=== PATIENT | male | born 1950 | race Caucasian/White ===

== ENCOUNTER → 2017-01-29 | Outpatient (CLI) | payer OTHER, MEDICARE ==
[2016-07-08 12:10] VITALS: BP 113/64
--- NOTE | 2017-01-29 11:34 | MRI ---
MRI right foot without contrast Indication: Right foot pain and swelling, nonhealing ulcer of the 4th toe Comparison: CTA runoff 01/14/2017 Technique: Multiplanar, multisequence MR images of the right foot were obtained without contrast. Findings: There is diffuse soft tissue edema of the 4th toe with associated osteolysis and hypointen se T1 marrow signal involving the distal phalangeal tuft. No discrete collection is identified. Ther e is some mild nonspecific marrow edema of the distal portion of the great toe distal phalanx, witho ut evidence for overt cortical destruction or hypointense T1 marrow signal. There is chronic fractur e deformity with foreshortening of the 3rd toe middle phalanx. 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 There is diffuse intrinsic muscular atrophy of the foot, in keeping with chronic diab etic neuropathy. Impression: 1. 4th toe cellulitis with osteomyelitis of the distal phalanx. No discrete collection identified. 2. 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 Generalized intrinsic muscular atrophy 4. Remote 3rd digit middle phalanx fracture. Reported By:
== END | disposition home or self-care (01) ==
LOC: RAD 09:14
PROVIDERS: ATTEND Specialist
DX: M79.674 Pain in right toe(s) (principal); M79.89 Other specified soft tissue disorders; S92.521A Displaced fracture of middle phalanx of right lesser toe(s), initial encounter for closed fracture; X58.XXXA Exposure to other specified factors, initial encounter; L03.031 Cellulitis of right toe; M86.8X7 Other osteomyelitis, ankle and foot
CPT/HCPCS: 73721

== ENCOUNTER 2019-11-24 16:16 | Inpatient (IN) ==
[2019-11-24 18:49] LABS: BASOPHILS % (AUTO) 0.2 % (0.2-1.0); EOSINOPHILS % (AUTO) 0.1 % (0.9-2.9); HEMATOCRIT 37.6 % (42.0-54.0); HEMOGLOBIN 12.5 g/dL (13.5-18.0); LYMPHOCYTES # (AUTO) 0.4 X10^3/uL (1.3-2.9); LYMPHOCYTES % (AUTO) 2.6 % (21.0-51.0); MEAN CORPUSCULAR HEMOGLOBIN 31.1 pg (27.0-34.0); MEAN CORPUSCULAR HGB CONC 33.3 g/dL (33.0-35.0); MEAN CORPUSCULAR VOLUME 93.4 fL (80.0-100.0); MEAN PLATELET VOLUME 9.1 fL (7.4-11.0); MONOCYTES # (AUTO) 1.4 x10^3/uL (0.3-0.8); MONOCYTES % (AUTO) 8.4 % (0.0-13.0); NEUTROPHILS # (AUTO) 14.7 x10^3/uL (2.2-4.8); NEUTROPHILS % (AUTO) 88.7 % (42.0-75.0); PLATELET COUNT 271 X10^3/uL (150.0-450.0); RED BLOOD COUNT 4.03 X10^6/uL (4.7-6.0); RED CELL DISTRIBUTION WIDTH 15.7 % (11.6-16.5); WHITE BLOOD COUNT 16.6 X10^3/uL (3.6-10.0)
[2019-11-24 19:59] LABS: ALBUMIN 2.1 g/dL (3.4-5.0); CALCIUM 8.2 mg/dL (8.5-10.1); CARBON DIOXIDE 24.3 mmol/L (21-32); COR CA(FOR HYPOALB) 9.7 mg/dL (8.5-10.1); CREATININE 5.38 mg/dL (0.70-1.30); TOTAL PROTEIN 7.2 g/dL (6.4-8.2)
[2019-11-24 21:11] VITALS: BMI 35.4
[2019-11-24] MEDS: ROCEPHIN VIAL 1 GRAM 1 G in NS 100 ML IV + SPIKE MINIBAG* 100 ML IV SCH (21:36)
[2019-11-24] MEDS: NS 1000 ML 1,000 ML IV SCH (21:36)
[2019-11-24 22:26] LABS: BILIRUBIN,URINE 3+ (NEGATIVE); BLOOD/HEMOGLOBIN,URINE 1+ (NEGATIVE); GLUCOSE, URINE NEGATIVE (NEGATIVE); KETONES,URINE NEGATIVE (NEGATIVE); LEUKOCYTE ESTERASE ,URINE 1+ (NEGATIVE); NITRITES,URINE NEGATIVE (NEGATIVE); PROTEIN,URINE 2+ (NEGATIVE); UROBILINOGEN,URINE 2+ (NORMAL)
[2019-11-24 22:35] LABS: APPEARANCE,URINE SLIGHTLY HAZY (CLEAR); COLOR,URINE DARK YELLOW (YELLOW)
[2019-11-24 22:36] LABS: AMORPHOUS SEDIMENT,UR 2+ /HPF (NEGATIVE); BACTERIA,URINE 1+ /HPF (NEGATIVE); HYALINE CASTS, URINE FEW /LPF (NEGATIVE); SQUAMOUS EPITHELIAL CELL,UR RARE /HPF (NEGATIVE)
[2019-11-24] MEDS ORDERED: STERILE WATER IRRIGATION IR ONE (23:05)
[2019-11-24] MEDS ORDERED: BENADRYL CAP/TAB 25 MG PO ONE (23:12)
[2019-11-24] MEDS: BENADRYL CAP/TAB 25 MG PO PRN (23:18)
[2019-11-25] MEDS: NS 1000 ML 1,000 ML IV SCH ×4 (06:13→21:10)
[2019-11-25 06:14] LABS: BASOPHILS % (AUTO) 0.1 % (0.2-1.0); EOSINOPHILS % (AUTO) 0.2 % (0.9-2.9); HEMATOCRIT 35.9 % (42.0-54.0); HEMOGLOBIN 12.2 g/dL (13.5-18.0); LYMPHOCYTES # (AUTO) 0.4 X10^3/uL (1.3-2.9); LYMPHOCYTES % (AUTO) 2.8 % (21.0-51.0); MEAN CORPUSCULAR HEMOGLOBIN 31.4 pg (27.0-34.0); MEAN CORPUSCULAR VOLUME 92.5 fL (80.0-100.0); MEAN PLATELET VOLUME 9.4 fL (7.4-11.0); MONOCYTES # (AUTO) 1.2 x10^3/uL (0.3-0.8); MONOCYTES % (AUTO) 8.9 % (0.0-13.0); NEUTROPHILS # (AUTO) 12.4 x10^3/uL (2.2-4.8); PLATELET COUNT 244 X10^3/uL (150.0-450.0); RED BLOOD COUNT 3.88 X10^6/uL (4.7-6.0); RED CELL DISTRIBUTION WIDTH 15.6 % (11.6-16.5); WHITE BLOOD COUNT 14.1 X10^3/uL (3.6-10.0)
[2019-11-25] MEDS: BENADRYL CAP/TAB 25 MG PO PRN (06:30)
[2019-11-25 06:39] LABS: ALBUMIN 1.9 g/dL (3.4-5.0); CALCIUM 8.1 mg/dL (8.5-10.1); CARBON DIOXIDE 25.3 mmol/L (21-32); COR CA(FOR HYPOALB) 9.8 mg/dL (8.5-10.1); CREATININE 4.74 mg/dL (0.70-1.30); TOTAL PROTEIN 6.9 g/dL (6.4-8.2)
[2019-11-25] MEDS ORDERED: TYLENOL 325 MG TAB PO PRN (07:20)
[2019-11-25] MEDS ORDERED: TYLENOL 325 MG TAB PO ONE (07:40)
[2019-11-25] MEDS: ROCEPHIN VIAL 1 GRAM 1 G in NS 100 ML IV + SPIKE MINIBAG* 100 ML IV SCH (10:06)
[2019-11-25] MEDS ORDERED: NS 1000 ML 1,000 ML IV ONE ×2 (10:22→10:23)
[2019-11-25] MEDS: PLAVIX PO SCH (12:06)
[2019-11-25] MEDS: LOVENOX INJ 30 MG SYR SC SCH (12:07)
--- NOTE | 2019-11-25 21:54 | DR.UPDATE ---
H&P Update History and Physical Update: History and Physical reviewed and patient examined. Changes noted: Yes with the following: PRESENTED OT THE OFFICE WITH COMPLAINTS OF FEVER, WEAKNESS, AND FATIGUE. HE REPORTS A CHANGE IN URINE STREAM AND ALSO REPORTS DARK URINE FOR THE PAST THREE DAYS. HE WAS NOTED TO BE HYPOTENSIVE IN THE OFFICE. WE ADMITTED PATIENT FOR FURTHER EVALUATIONS AND TREATMENT OF UTI, DEHYDRATION, AND HYPOTENSION. ON ADMISSION, WE OBTAINED LABS. ABNORMAL LAB VALUES INCLUDE THE FOLLOWING: WBC 16.6, RBC 4.03, HGB 12.5, HCT 37.6, SODIUM 131, CHLORIDE 94, BUN 90, CREATININE 5.38, GLUCOSE 170, CALCIUM 8.2, TOTAL BILI 1.70, AT 219, ALT 100, ALK PHOS 290, ALBUMIN 2.1, GLOBULIN 5.1. URINALYSIS REVEALED WBC 5-10, RBC 3-5, BACTERIA 1+, LEUKOCTYES 1+. URINE CULTURE PENDING. WE STARTED NORMAL SALINE AT 125ML/HR AND ROCEPHIN 1G IV DAILY. TODAY, WE WILL OBTAIN AN ECHO, HEPATITIS PANEL, BNP, AND BLOOD CULTURES. WE WILL ADMINISTER 2 NORMAL SALINE BOLUSES AND START TRAMADOL 50MG PO Q6H PRN PAIN. OTHERWISE, WE WILL FOLLOW UP WITH AM LABS AND CONTINUE TO MONITOR. H&P Reviewed: Yes Patient was examined?: Yes
[2019-11-26] MEDS: NS 1000 ML 1,000 ML IV SCH ×4 (05:30→21:55)
[2019-11-26 06:13] LABS: BASOPHILS % (AUTO) 0.1 % (0.2-1.0); EOSINOPHILS % (AUTO) 0.3 % (0.9-2.9); HEMATOCRIT 34.3 % (42.0-54.0); HEMOGLOBIN 11.5 g/dL (13.5-18.0); LYMPHOCYTES # (AUTO) 0.4 X10^3/uL (1.3-2.9); LYMPHOCYTES % (AUTO) 3.1 % (21.0-51.0); MEAN CORPUSCULAR HEMOGLOBIN 31.3 pg (27.0-34.0); MEAN CORPUSCULAR HGB CONC 33.6 g/dL (33.0-35.0); MEAN PLATELET VOLUME 8.9 fL (7.4-11.0); MONOCYTES # (AUTO) 1.1 x10^3/uL (0.3-0.8); MONOCYTES % (AUTO) 8.1 % (0.0-13.0); NEUTROPHILS # (AUTO) 11.6 x10^3/uL (2.2-4.8); NEUTROPHILS % (AUTO) 88.4 % (42.0-75.0); PLATELET COUNT 263 X10^3/uL (150.0-450.0); RED BLOOD COUNT 3.69 X10^6/uL (4.7-6.0); RED CELL DISTRIBUTION WIDTH 15.9 % (11.6-16.5); WHITE BLOOD COUNT 13.1 X10^3/uL (3.6-10.0)
--- NOTE | 2019-11-26 06:14 | RAD ---
HISTORYSOBSTUDYAP [id number] heart size, borderline enlarged. The lungs and pleural spaces are clear of active-appearing disease. There is no evidence for pneumonia or CHFIMPRESSIONNo significant change; no acute findings.Electronically signed by: JOAQUIM BLOUNT (Nov 26, 2019 06:13:51)
[2019-11-26 06:20] LABS: ALBUMIN 1.7 g/dL (3.4-5.0); CARBON DIOXIDE 25.6 mmol/L (21-32); COR CA(FOR HYPOALB) 9.8 mg/dL (8.5-10.1); CREATININE 2.49 mg/dL (0.70-1.30); TOTAL PROTEIN 6.6 g/dL (6.4-8.2)
[2019-11-26] MEDS: LOVENOX INJ 30 MG SYR SC SCH (09:38)
[2019-11-26] MEDS: ROCEPHIN VIAL 1 GRAM 1 G in NS 100 ML IV + SPIKE MINIBAG* 100 ML IV SCH (09:38)
[2019-11-26] MEDS: HumuLIN R SUBCUT PRN ×2 (17:50→21:53)
[2019-11-26] MEDS: SNACK - Diabetic Appropriate PO SCH (21:40)
[2019-11-26] MEDS: ULTRAM PO PRN (21:55)
--- NOTE | 2019-11-26 22:00 | PCM.PROG ---
Progress Note - Progress Note for Day of Date of Exam: 11/26/19 - Subjective Subjective: IS BEING TREATED FOR ACUTE RENAL FAILURE, URINARY TRACT INFECTION, AND HYPOTENSION. TODAY, HE IS ALERT AND ORIENTED, LYING IN BED ON MORNING ROUNDS. HE REPORTS WEAKNESS AND LOWER BACK PAIN TODAY. HE CONTINUES WITH DARK URINE. ON EXAMINATION, HEART IS REGULAR IN RATE AND RHYTHM. BILATERAL LUNGS ARE NOTED WITH DIMINISHED LUNG SOUNDS THROUGHOUT. ABDOMEN IS ROUND, SOFT, AND NON-TENDER WITH NORMAL BOWEL SOUNDS NOTED IN ALL QUARANTS. HIS VITALS THIS MORNING ARE: 97.9-93-18-97%-149/70. LABS WERE OBTAINED. ABNORMAL LAB VALUES INCLUDE THE FOLLOWING: WBC 13.1, RBC 3.69, HGB 11.5, HCT 34.3, POTASSIUM 3.2, CHLORIDE 108, BUN 60, CREATININE 2.49, GLUCOSE 237, CALCIUM 8.0, AST 101, ALT 87, ALK PHOS 274, BNP 169, ALBUMIN 1.7, GLOBULIN 4.9. URINE CULTURE AND BLOOD CULTURES ARE PENDING. A HEPATITIS PANEL IS ALSO PENDING. CHEST XRAY IS NORMAL. HE IS CURRENTLY RECEIVING NORMAL SALINE AT 125ML/HR, ROCEPHIN 1G IV DAILY, LOVENOX 30MG SC DAILY, PLAVIX 75MG PO QOD, AND HUMULIN R SLIDING SCALE. WE WILL CONTINUE WITH CURRENT PLAN OF CARE TODAY. OTHERWISE, WE WILL FOLLOW UP WITH AM LABS AND CONTINUE TO MONITOR. - Past Medical Family Social History Past Med/Fam/Surg Hx: No changes since H&P Allergies: Allergies morphine Allergy (Verified 11/24/19 18:25) - Review of Systems ROS: No change since H&P - Vital Signs and I&O's Vital Signs: Temperature 97.8 F Pulse Rate [Left Brachial] 69 Respiratory Rate 22 Blood Pressure [Left Arm] 98/54 Blood Pressure [Right Arm] 149/70 Blood Pressure 154/74 O2 Sat by Pulse Oximetry 96 Intake and Output: Intake & Output 11/24/19 11/25/19 11/26/19 11/27/19 11:59 11:59 11:59 11:59 Intake Total 1541 / 1541 6149 / 6149 1676 / 1676 Output Total 875 / 875 4100 / 4100 400 / 400 Balance 666 / 666 2049 / 2049 1276 / 1276 - Physical Exam Oriented: Normal Eyes: Normal Ear: Normal Nose: Normal Throat: Normal Respiratory: Generalized, Diminished Cardiovascular: Normal. negative: S3, S4, Murmur : Normal Auscultation: Bowel Sounds: Normal Palpation: Normal Tenderness: Normal Skin: Normal Musculoskeletal: Back:Lumbar Psychiatric: Normal Mood Description: Calm Affect: Normal Speech Pattern: Clear, Appropriate - Laboratory and Diagnostics Result Diagrams: 11/26/19 05:41 11/26/19 05:41 Labs: 11/24/19 19:57 Urine,Clean Catch Urine Culture - Final Laboratory WBC 13.1 X10^3/uL (3.6-10.0) H 11/26/19 05:41 RBC 3.69 X10^6/uL (4.7-6.0) L 11/26/19 05:41 Hgb 11.5 g/dL (13.5-18.0) L 11/26/19 05:41 Hct 34.3 % (42.0-54.0) L 11/26/19 05:41 MCV 93.0 fL (80.0-100.0) 11/26/19 05:41 MCH 31.3 pg (27.0-34.0) 11/26/19 05:41 MCHC 33.6 g/dL (33.0-35.0) 11/26/19 05:41 RDW 15.9 % (11.6-16.5) 11/26/19 05:41 Plt Count 263 X10^3/uL (150.0-450.0) 11/26/19 05:41 MPV 8.9 fL (7.4-11.0) 11/26/19 05:41 Neut % (Auto) 88.4 % (42.0-75.0) H 11/26/19 05:41 Lymph % (Auto) 3.1 % (21.0-51.0) L 11/26/19 05:41 [place] % (Auto) 8.1 % (0.0-13.0) 11/26/19 05:41 Eos % (Auto) 0.3 % (0.9-2.9) L 11/26/19 05:41 Baso % (Auto) 0.1 % (0.2-1.0) L 11/26/19 05:41 Neut # (Auto) 11.6 x10^3/uL (2.2-4.8) H 11/26/19 05:41 Lymph # (Auto) 0.4 X10^3/uL (1.3-2.9) L 11/26/19 05:41 [place] # (Auto) 1.1 x10^3/uL (0.3-0.8) H 11/26/19 05:41 Eos # (Auto) 0.0 x10^3/uL (0.0-0.2) 11/26/19 05:41 Baso # (Auto) 0.0 X10^3/uL (0.0-0.1) 11/26/19 05:41 Absolute Nucleated RBC 0.0 /100WBC 11/26/19 05:41 Sodium 143 mmol/L (136-145) 11/26/19 05:41 Corrected Sodium 146 mmol/L (136-145) H 11/26/19 05:41 Potassium 3.2 mmol/L (3.5-5.1) L 11/26/19 05:41 Chloride 108 mmol/L (98-107) H 11/26/19 05:41 Carbon Dioxide 25.6 mmol/L (21-32) 11/26/19 05:41 BUN 60 mg/dL (7-18) H 11/26/19 05:41 Creatinine 2.49 mg/dL (0.70-1.30) H 11/26/19 05:41 Est GFR (MDRD) Af Amer 33 (>60) L 11/26/19 05:41 Est GFR (MDRD) Non-Af 27 (>60) L 11/26/19 05:41 Glucose 237 mg/dL (65-99) H 11/26/19 05:41 POC Glucose (mg/dL) 234 mg/dL (65-99) H 11/26/19 20:41 Calcium 8.0 mg/dL (8.5-10.1) L 11/26/19 05:41 Corrected Calcium 9.8 mg/dL (8.5-10.1) 11/26/19 05:41 Magnesium 2.6 mg/dL (1.7-2.9) 11/26/19 05:41 Total Bilirubin 0.60 mg/dL (0.2-1.0) 11/26/19 05:41 AST 101 Units/L (15-37) H 11/26/19 05:41 ALT 87 Units/L (12-78) H 11/26/19 05:41 Alkaline Phosphatase 274 Units/L (46-116) H 11/26/19 05:41 B-Natriuretic Peptide 169 pg/mL (0-79) H 11/25/19 10:33 Total Protein 6.6 g/dL (6.4-8.2) 11/26/19 05:41 Albumin 1.7 g/dL (3.4-5.0) L 11/26/19 05:41 Globulin 4.9 g/dL (2.5-4.5) H 11/26/19 05:41 Albumin/Globulin Ratio 0.3 Ratio (1.1-2.1) L 11/26/19 05:41 Specimen Type Clean catch urine 11/24/19 19:57 Urine Color Dark yellow (YELLOW) 11/24/19 19:57 Urine Appearance Slightly hazy (CLEAR) 11/24/19 19:57 Urine pH 5.0 (5.0 - 8.0) 11/24/19 19:57 Ur Specific [place] 1.015 (1.000-1.030) 11/24/19 19:57 Urine Protein 2+ (NEGATIVE) 11/24/19 19:57 Urine Glucose (UA) Negative (NEGATIVE) 11/24/19 19:57 Urine Ketones Negative (NEGATIVE) 11/24/19 19:57 Urine Occult Blood 1+ (NEGATIVE) 11/24/19 19:57 Urine Nitrite Negative (NEGATIVE) 11/24/19 19:57 Urine Bilirubin 3+ (NEGATIVE) 11/24/19 19:57 Urine Urobilinogen 2+ (NORMAL) 11/24/19 19:57 Ur Leukocyte Esterase 1+ (NEGATIVE) 11/24/19 19:57 Urine RBC 3-5 /HPF (0-3) A 11/24/19 19:57 Urine WBC 5-10 /HPF (0-5) A 11/24/19 19:57 Ur Squamous Epith Cells Rare /HPF (NEGATIVE) 11/24/19 19:57 Amorphous Sediment 2+ /HPF (NEGATIVE) 11/24/19 19:57 Urine Bacteria 1+ /HPF (NEGATIVE) 11/24/19 19:57 Hyaline Casts Few /LPF (NEGATIVE) 11/24/19 19:57 Ur Culture Indicated? Yes/culture set up 11/24/19 19:57 - Plan (1) Acute renal failure Status: Acute Qualifiers: Acute renal failure type: unspecified Qualified Code(s): N17.9 - Acute kidney failure, unspecified Plan: ADMIT, NORMAL SALINE AT 125ML/HR, CONTINUE TO MONTIOR (2) Urinary tract infection Status: Acute Qualifiers: Urinary tract infection type: acute cystitis Hematuria presence: without hematuria Qualified Code(s): N30.00 - Acute cystitis without hematuria Plan: ROCEPHIN 1G IV DAILY, CONTINUE TO MONITOR (3) Hypotension Status: Resolved Qualifiers: Hypotension type: unspecified hypotension type Qualified Code(s): I95.9 - Hypotension, unspecified
[2019-11-27 05:11] LABS: BASOPHILS % (AUTO) 0.2 % (0.2-1.0); EOSINOPHILS # (AUTO) 0.1 x10^3/uL (0.0-0.2); EOSINOPHILS % (AUTO) 0.8 % (0.9-2.9); HEMATOCRIT 32.5 % (42.0-54.0); HEMOGLOBIN 10.9 g/dL (13.5-18.0); LYMPHOCYTES # (AUTO) 0.6 X10^3/uL (1.3-2.9); MEAN CORPUSCULAR HEMOGLOBIN 31.3 pg (27.0-34.0); MEAN CORPUSCULAR HGB CONC 33.5 g/dL (33.0-35.0); MEAN CORPUSCULAR VOLUME 93.5 fL (80.0-100.0); MEAN PLATELET VOLUME 8.9 fL (7.4-11.0); MONOCYTES # (AUTO) 1.2 x10^3/uL (0.3-0.8); MONOCYTES % (AUTO) 8.5 % (0.0-13.0); NEUTROPHILS # (AUTO) 12.4 x10^3/uL (2.2-4.8); NEUTROPHILS % (AUTO) 86.5 % (42.0-75.0); PLATELET COUNT 288 X10^3/uL (150.0-450.0); RED BLOOD COUNT 3.47 X10^6/uL (4.7-6.0); RED CELL DISTRIBUTION WIDTH 15.5 % (11.6-16.5); WHITE BLOOD COUNT 14.3 X10^3/uL (3.6-10.0)
[2019-11-27 05:26] LABS: ALANINE AMINOTRANSFERASE 79 Units/L (12-78); ALBUMIN 1.6 g/dL (3.4-5.0); ALKALINE PHOSPHATASE 245 Units/L (46-116); ASPARTATE AMINO TRANSFERASE 73 Units/L (15-37); BLOOD UREA NITROGEN 33 mg/dL (7-18); CALCIUM 8.2 mg/dL (8.5-10.1); CARBON DIOXIDE 25.1 mmol/L (21-32); CHLORIDE 111 mmol/L (98-107); COR CA(FOR HYPOALB) 10.1 mg/dL (8.5-10.1); COR NA(FOR HYPERGLY) 146 mmol/L (136-145); CREATININE 1.43 mg/dL (0.70-1.30); SODIUM 145 mmol/L (136-145); TOTAL PROTEIN 6.4 g/dL (6.4-8.2); eGFR NON BLACK RACES 52 (>60)
[2019-11-27] MEDS ORDERED: KLOR-CON PO PRN (05:53)
[2019-11-27] MEDS ORDERED: POTASSIUM CHL 60 MEQ/NS 0.45% 500 ML IV PRN (05:53)
[2019-11-27] MEDS ORDERED: K-DUR TAB 20 MEQ PO PRN (05:53)
[2019-11-27] MEDS ORDERED: MAGNESIUM SULFATE 1 GRAM/100 mL PREMIX 1 GM/100 ML BAG IV PRN (05:53)
[2019-11-27] MEDS ORDERED: K-RIDER 10 MEQ/NS 100 ML 10 MEQ/100 ML BAG IV PRN (05:53)
[2019-11-27] MEDS ORDERED: POTASSIUM CHL 40 MEQ/NS 0.45% 500 ML IV PRN (05:53)
[2019-11-27] MEDS ORDERED: MICRO K EXTEN CAP 10 MEQ PO PRN (05:53)
[2019-11-27] MEDS ORDERED: POTASSIUM CHLORIDE LIQ 20 MEQ UDC PO PRN (05:53)
[2019-11-27] MEDS: NS 1000 ML 1,000 ML IV SCH ×4 (06:34→22:42)
--- NOTE | 2019-11-27 07:30 | RAD ---
HISTORYSOBSTUDYCHEST, 1 [id number] trachea is midline. The cardiac silhouette is enlarged. Linear opacity within the right lung base likely represents subsegmental atelectasis. Remaining lungs are clear. No pleural effusion or pneumothorax. No acute osseous abnormality.IMPRESSIONInterval development of linear opacity within the right lung base likely represents subsegmental atelectasis. The remaining lungs are otherwise clear.Stable cardiomegaly.Electronically signed by: BETHANIE SRIVASTAVA (Nov 27, 2019 07:29:17)
[2019-11-27] MEDS: DUONEB 0.5 MG/3 MG (3 mL) NEB SCH ×4 (09:40→20:56)
[2019-11-27] MEDS: ROCEPHIN VIAL 1 GRAM 1 G in NS 100 ML IV + SPIKE MINIBAG* 100 ML IV SCH (09:50)
[2019-11-27] MEDS: LOVENOX INJ 30 MG SYR SC SCH (09:50)
[2019-11-27] MEDS: PLAVIX PO SCH (10:30)
[2019-11-27] MEDS: HumuLIN R SUBCUT PRN (17:15)
[2019-11-27] MEDS: SNACK - Diabetic Appropriate PO SCH (20:12)
[2019-11-27] MEDS: ULTRAM PO PRN (20:13)
--- NOTE | 2019-11-27 20:37 | PCM.PROG ---
Progress Note - Progress Note for Day of Date of Exam: 11/27/19 - Subjective Subjective: IS BEING TREATED FOR ACUTE RENAL FAILURE, URINARY TRACT INFECTION, AND HYPOTENSION. TODAY, HE IS ALERT AND ORIENTED, LYING IN BED ON MORNING ROUNDS. HE REPORTS WEAKNESS, SHORTNESS OF BREATH, AND COUGH TODAY, BUT REPORTS SLIGHT IMPROVEMENT IN SYMPTOMS SINCE YESTERDAY. ON EXAMINATION, HEART IS REGULAR IN RATE AND RHYTHM. BILATERAL LUNGS ARE NOTED WITH DIMINISHED LUNG SOUNDS THROUGHOUT. ABDOMEN IS ROUND, SOFT, AND NON-TENDER WITH NORMAL BOWEL SOUNDS NOTED IN ALL QUARANTS. HIS VITALS THIS MORNING ARE: 98.7-57-20-97%-138/65. LABS WERE OBTAINED. ABNORMAL LAB VALUES INCLUDE THE FOLLOWING: WBC INCREASED TO 14.3, RBC 3.47, HGB 10.9, HCT 32.5, CHLORIDE 111, BUN 36, CREATININE 1.43, GLUCOSE 121, CALCIUM 8.2, AST 73, ALT 79, ALK PHOS 245, ALBUMIN 1.6, GLOBULIN 4.8. URINE CULTURE AND BLOOD CULTURES ARE PENDING. A HEPATITIS PANEL IS ALSO PENDING. CHEST XRAY TODAY REVEALED: Interval development of linear opacity within the right lung base likely represents subsegmental atelectasis. The remaining lungs are otherwise clear. Stable cardiomegaly. HE IS CURRENTLY RECEIVING NORMAL SALINE AT 125ML/HR, ROCEPHIN 1G IV DAILY, LOVENOX 30MG SC DAILY, PLAVIX 75MG PO QOD, AND HUMULIN R SLIDING SCALE. WE WILL CONTINUE WITH CURRENT PLAN OF CARE TODAY AND START BREATHING TREATMENTS FOR ACUTE BRO NCHITIS WITH POSSIBLE DEVELOPING INFILTRATES. OTHERWISE, WE WILL FOLLOW UP WITH AM LABS AND CONTINUE TO MONITOR. - Past Medical Family Social History Past Med/Fam/Surg Hx: No changes since H&P Allergies: Allergies morphine Allergy (Verified 11/24/19 18:25) - Review of Systems ROS: No change since H&P - Vital Signs and I&O's Vital Signs: Temperature 97.9 F Pulse Rate [Left Brachial] 83 Pulse Rate 62 Respiratory Rate 18 Blood Pressure [Left Arm] 98/54 Blood Pressure [Right Arm] 150/77 Blood Pressure 154/74 O2 Sat by Pulse Oximetry 97 Intake and Output: Intake & Output 11/25/19 11/26/19 11/27/19 11/28/19 11:59 11:59 11:59 11:59 Intake Total 1541 / 1541 6149 / 6149 3176 / 3176 1939 / 194 Output Total 875 / 875 4100 / 4100 900 / 900 600 / 600 Balance 666 / 666 2049 / 2049 2276 / 2276 1340 / 1340 - Physical Exam Oriented: Normal Eyes: Normal Ear: Normal Nose: Normal Throat: Normal Respiratory: Generalized, Diminished Cardiovascular: Normal. negative: S3, S4, Murmur : Normal Auscultation: Bowel Sounds: Normal Palpation: Normal Tenderness: Normal Skin: Normal Musculoskeletal: Back:Lumbar Psychiatric: Normal Mood Description: Calm Affect: Normal Speech Pattern: Clear, Appropriate - Laboratory and Diagnostics Result Diagrams: 11/27/19 04:27 11/27/19 04:27 Labs: 11/25/19 10:40 Blood Blood Culture - Preliminary 11/25/19 10:33 Blood Blood Culture - Preliminary 11/24/19 19:57 Urine,Clean Catch Urine Culture - Final Laboratory WBC 14.3 X10^3/uL (3.6-10.0) H 11/27/19 04:27 RBC 3.47 X10^6/uL (4.7-6.0) L 11/27/19 04:27 Hgb 10.9 g/dL (13.5-18.0) L 11/27/19 04:27 Hct 32.5 % (42.0-54.0) L 11/27/19 04:27 MCV 93.5 fL (80.0-100.0) 11/27/19 04:27 MCH 31.3 pg (27.0-34.0) 11/27/19 04:27 MCHC 33.5 g/dL (33.0-35.0) 11/27/19 04:27 RDW 15.5 % (11.6-16.5) 11/27/19 04:27 Plt Count 288 X10^3/uL (150.0-450.0) 11/27/19 04:27 MPV 8.9 fL (7.4-11.0) 11/27/19 04:27 Neut % (Auto) 86.5 % (42.0-75.0) H 11/27/19 04:27 Lymph % (Auto) 4.0 % (21.0-51.0) L 11/27/19 04:27 [place] % (Auto) 8.5 % (0.0-13.0) 11/27/19 04:27 Eos % (Auto) 0.8 % (0.9-2.9) L 11/27/19 04:27 Baso % (Auto) 0.2 % (0.2-1.0) 11/27/19 04:27 Neut # (Auto) 12.4 x10^3/uL (2.2-4.8) H 11/27/19 04:27 Lymph # (Auto) 0.6 X10^3/uL (1.3-2.9) L 11/27/19 04:27 [place] # (Auto) 1.2 x10^3/uL (0.3-0.8) H 11/27/19 04:27 Eos # (Auto) 0.1 x10^3/uL (0.0-0.2) 11/27/19 04:27 Baso # (Auto) 0.0 X10^3/uL (0.0-0.1) 11/27/19 04:27 Absolute Nucleated RBC 0.1 /100WBC 11/27/19 04:27 Sodium 145 mmol/L (136-145) 11/27/19 04:27 Corrected Sodium 146 mmol/L (136-145) H 11/27/19 04:27 Potassium 3.6 mmol/L (3.5-5.1) 11/27/19 04:27 Chloride 111 mmol/L (98-107) H 11/27/19 04:27 Carbon Dioxide 25.1 mmol/L (21-32) 11/27/19 04:27 BUN 33 mg/dL (7-18) H 11/27/19 04:27 Creatinine 1.43 mg/dL (0.70-1.30) H 11/27/19 04:27 Est GFR (MDRD) Af Amer > 60 (>60) 11/27/19 04:27 Est GFR (MDRD) Non-Af 52 (>60) L 11/27/19 04:27 Glucose 121 mg/dL (65-99) H 11/27/19 04:27 POC Glucose (mg/dL) 119 mg/dL (65-99) H 11/27/19 20:22 Calcium 8.2 mg/dL (8.5-10.1) L 11/27/19 04:27 Corrected Calcium 10.1 mg/dL (8.5-10.1) 11/27/19 04:27 Magnesium 2.0 mg/dL (1.7-2.9) 11/27/19 04:27 Total Bilirubin 0.60 mg/dL (0.2-1.0) 11/27/19 04:27 AST 73 Units/L (15-37) H 11/27/19 04:27 ALT 79 Units/L (12-78) H 11/27/19 04:27 Alkaline Phosphatase 245 Units/L (46-116) H 11/27/19 04:27 B-Natriuretic Peptide 169 pg/mL (0-79) H 11/25/19 10:33 Total Protein 6.4 g/dL (6.4-8.2) 11/27/19 04:27 Albumin 1.6 g/dL (3.4-5.0) L 11/27/19 04:27 Globulin 4.8 g/dL (2.5-4.5) H 11/27/19 04:27 Albumin/Globulin Ratio 0.3 Ratio (1.1-2.1) L 11/27/19 04:27 Specimen Type Clean catch urine 11/24/19 19:57 Urine Color Dark yellow (YELLOW) 11/24/19 19:57 Urine Appearance Slightly hazy (CLEAR) 11/24/19 19:57 Urine pH 5.0 (5.0 - 8.0) 11/24/19 19:57 Ur Specific [place] 1.015 (1.000-1.030) 11/24/19 19:57 Urine Protein 2+ (NEGATIVE) 11/24/19 19:57 Urine Glucose (UA) Negative (NEGATIVE) 11/24/19 19:57 Urine Ketones Negative (NEGATIVE) 11/24/19 19:57 Urine Occult Blood 1+ (NEGATIVE) 11/24/19 19:57 Urine Nitrite Negative (NEGATIVE) 11/24/19 19:57 Urine Bilirubin 3+ (NEGATIVE) 11/24/19 19:57 Urine Urobilinogen 2+ (NORMAL) 11/24/19 19:57 Ur Leukocyte Esterase 1+ (NEGATIVE) 11/24/19 19:57 Urine RBC 3-5 /HPF (0-3) A 11/24/19 19:57 Urine WBC 5-10 /HPF (0-5) A 11/24/19 19:57 Ur Squamous Epith Cells Rare /HPF (NEGATIVE) 11/24/19 19:57 Amorphous Sediment 2+ /HPF (NEGATIVE) 11/24/19 19:57 Urine Bacteria 1+ /HPF (NEGATIVE) 11/24/19 19:57 Hyaline Casts Few /LPF (NEGATIVE) 11/24/19 19:57 Ur Culture Indicated? Yes/culture set up 11/24/19 19:57 - Plan (1) Acute renal failure Status: Acute Qualifiers: Acute renal failure type: unspecified Qualified Code(s): N17.9 - Acute kidney failure, unspecified Plan: ADMIT, NORMAL SALINE AT 125ML/HR, CONTINUE TO MONTIOR (2) Urinary tract infection Status: Acute Qualifiers: Urinary tract infection type: acute cystitis Hematuria presence: without hematuria Qualified Code(s): N30.00 - Acute cystitis without hematuria Plan: ROCEPHIN 1G IV DAILY, CONTINUE TO MONITOR (3) Hypotension Status: Resolved Qualifiers: Hypotension type: unspecified hypotension type Qualified Code(s): I95.9 - Hypotension, unspecified (4) Acute bronchitis Status: Acute Qualifiers: Bronchitis organism: unspecified organism Qualified Code(s): J20.9 - Acute bronchitis, unspecified Plan: ROCEPHIN 1G IV DAILY, DUONEBS, CONTINUE TO MONITOR
[2019-11-28] MEDS: NS 1000 ML 1,000 ML IV SCH ×2 (04:26→05:44)
[2019-11-28 05:44] LABS: BASOPHILS % (AUTO) 0.2 % (0.2-1.0); EOSINOPHILS # (AUTO) 0.1 x10^3/uL (0.0-0.2); EOSINOPHILS % (AUTO) 0.6 % (0.9-2.9); LYMPHOCYTES # (AUTO) 0.7 X10^3/uL (1.3-2.9); LYMPHOCYTES % (AUTO) 4.9 % (21.0-51.0); MEAN CORPUSCULAR HEMOGLOBIN 31.4 pg (27.0-34.0); MEAN CORPUSCULAR HGB CONC 33.4 g/dL (33.0-35.0); MEAN CORPUSCULAR VOLUME 94.2 fL (80.0-100.0); MEAN PLATELET VOLUME 8.6 fL (7.4-11.0); MONOCYTES # (AUTO) 0.9 x10^3/uL (0.3-0.8); MONOCYTES % (AUTO) 6.3 % (0.0-13.0); NEUTROPHILS # (AUTO) 12.2 x10^3/uL (2.2-4.8); PLATELET COUNT 314 X10^3/uL (150.0-450.0); RED CELL DISTRIBUTION WIDTH 15.7 % (11.6-16.5); WHITE BLOOD COUNT 13.8 X10^3/uL (3.6-10.0)
[2019-11-28 06:05] LABS: ALANINE AMINOTRANSFERASE 75 Units/L (12-78); ALBUMIN 1.7 g/dL (3.4-5.0); ALKALINE PHOSPHATASE 238 Units/L (46-116); ASPARTATE AMINO TRANSFERASE 59 Units/L (15-37); BLOOD UREA NITROGEN 23 mg/dL (7-18); CALCIUM 8.3 mg/dL (8.5-10.1); CARBON DIOXIDE 25.3 mmol/L (21-32); CHLORIDE 110 mmol/L (98-107); COR CA(FOR HYPOALB) 10.1 mg/dL (8.5-10.1); COR NA(FOR HYPERGLY) 145 mmol/L (136-145); CREATININE 1.12 mg/dL (0.70-1.30); SODIUM 144 mmol/L (136-145); TOTAL PROTEIN 6.6 g/dL (6.4-8.2); eGFR NON BLACK RACES > 60 (>60)
--- NOTE | 2019-11-28 07:35 | RAD ---
HISTORYSOBSTUDYPortable AP [id number] heart size. Clear left lung. Minimal infiltrate or atelectasis still suggested in the medial right lower lung. No segmental or lobar consolidation, edema or large pleural effusion.IMPRESSIONNo significant change since 1 day prior.Electronically signed by: JOAQUIM BLOUNT (Nov 28, 2019 07:34:02)
[2019-11-28] MEDS: DUONEB 0.5 MG/3 MG (3 mL) NEB SCH (08:19)
[2019-11-28] MEDS: ROCEPHIN VIAL 1 GRAM 1 G in NS 100 ML IV + SPIKE MINIBAG* 100 ML IV SCH (09:30)
[2019-11-28] MEDS: LOVENOX INJ 30 MG SYR SC SCH (09:32)
[2019-11-28] MEDS: PLAVIX PO SCH (09:33)
[2019-11-28 12:28] VITALS: BP 165/74
[2019-11-30 06:11] LABS: HEPATITIS B SURFACE ANTIGEN Negative (Negative)
== END 2019-11-28 12:00 | disposition home or self-care (01) | DRG 683 ==
LOC: MED/SURG → OBSVTOIN 17:49
PROVIDERS: ADMIT Internal Medicine; ATTEND Internal Medicine
DX: M54.9 Dorsalgia, unspecified; N17.9 Acute kidney failure, unspecified; N39.0 Urinary tract infection, site not specified; J20.9 Acute bronchitis, unspecified; I95.9 Hypotension, unspecified; E11.9 Type 2 diabetes mellitus without complications; I10 Essential (primary) hypertension
CPT/HCPCS: 36415; 71010; 71045; 80053; 80074; 81001; 83735; 83880; 85025; 87040; 87086; 93306; 94640; 94760; A4216; A4222; J0696; J1650; J1815; J3490; J7030; J7050; J7620